=== PATIENT | male | born 1955 | race Caucasian/White ===

== ENCOUNTER → 2016-09-07 | Outpatient (CLI) | payer BC ==
--- NOTE | 2016-09-08 09:07 | MRI ---
HISTORY: Right shoulder rotator cuff syndrome, pain Study: MRI right shoulder without contrast Comparison: None Technique: Multiplanar multisequence MRI of the right shoulder was obtained utilizing standard depa rtmental protocol. Exam is limited by motion artifact. Findings: Rotator cuff There is no complete or bursal/articular sided partial rotator cuff tear. Intermediate intrasubstanc e signal intensity is seen within the distal supraspinatus tendon suggesting tendinopathy. Bursa There is trace fluid seen in the subdeltoid bursa. Musculature There is no muscular tear, contusion, or atrophy. Acromioclavicular joint There are moderate degenerative and hypertrophic changes of the acromioclavicular joint. A type 2 ac romion configuration is noted. There is no anterior or lateral acromial downsloping. there is mild n arrowing of the acromiohumeral interval to 6 mm. LONG BICIPITAL TENDON The biceps tendon is normally situated within the bicipital groove. No complete or partial biceps te ndon tear is present. GLENOHUMERAL JOINT Joint fluid There is no glenohumeral joint effusion. Cartilage and Bone Sclerotic and subchondral cystic changes of humeral head and glenoid are present. Labrum Suspected degenerative fraying of the glenoid labrum. Other support structures No capsular or ligamentous abnormality is seen. IMPRESSION: 1. Findings suggesting supraspinatus tendinopathy without evidence of full-thickness tear. 2. Moderate AC joint degenerative changes as described with narrowing of the acromiohumeral interval to 6 mm. 3. Degenerative changes of the glenoid and labrum. Reported By:
== END ==
LOC: RAD 15:30
PROVIDERS: ATTEND Orthopaedic Surgery
DX: M75.111 Incomplete rotator cuff tear or rupture of right shoulder, not specified as traumatic (principal)
CPT/HCPCS: 73221

== ENCOUNTER → 2016-10-12 | Outpatient (CLI) | payer BC ==
--- NOTE | 2016-10-12 21:50 | MRI ---
MRI SPINE CERVICAL WITHOUT CONTRAST CLINICAL HISTORY: 61-year-old male with neck pain. COMPARISON: None. Technique: Multiplanar, multisequence MRI images of the cervical spine were obtained prior to and f ollowing the uneventful intravenous administration of contrast. FINDINGS: Straightening of the cervical lordosis as imaged. Alignment is maintained. The craniocervi glynn junction is normal. Vertebral body and disc space height are maintained. Probable hemangiomas in C2 vertebral body. Remaining vertebral marrow signal is normal. Intervertebral disc height and sign al are preserved. Cord signal is normal. The visualized posterior fossa structures are normal. C2-C3: Right uncovertebral joint spurring without central canal or neural foraminal stenosis. C3-C4: Central disk osteophyte without central canal or neural foraminal stenosis. C4-C5: No central canal or neural foraminal stenosis. C5-C6: Broad-based disk osteophyte with mild uncovertebral joint hypertrophy without neuroforaminal stenosis. There is mild effacement of the subarachnoid spaces without cord impingement. C6-C7: Central disk osteophyte produces contour deformity of the ventral thecal sac with effacement of the subarachnoid spaces without cord contact. Central canal measures 8.5 mm. Bilateral uncoverteb ral joint hypertrophy without significant neural foraminal stenosis. C7-T1: No central canal or neural foraminal stenosis. Paraspinous soft tissues are unremarkable. IMPRESSION: Mild multilevel degenerative change, most prominent at C6-C7 as described on a level by level basis above. Reported By:
== END ==
LOC: RAD 15:28
PROVIDERS: ATTEND Orthopaedic Surgery
DX: M50.323 Other cervical disc degeneration at C6-C7 level (principal)
CPT/HCPCS: 72141